=== PATIENT | female | born 1965 | race Caucasian/White ===

== ENCOUNTER 2021-11-26 14:31 | Outpatient (CLI) | payer OTHER, SELFPAY ==
--- NOTE | ~2021-11-26 | CT_ITS ---
EXAMINATION: CT brain wo/w con DATE: 11/26/2021 15:06 INDICATION: Dizziness and giddiness. TECHNIQUE: Computed tomography (CT) of the head was performed without and with 100 mL Omnipaque 350 i ntravenous contrast. The mA was adjusted according to patient size. Iterative reconstruction techniqu e was employed. The dose-length product was 1199.14 mGy-cm. COMPARISON: None FINDINGS: There is no intracranial hemorrhage, acute infarction, or abnormal intracranial mass lesion . The ventricles are normal in size. The paranasal sinuses are clear. The mastoid air cells are sivan l. The orbits are normal. IMPRESSION: 1. Normal brain. Reviewed, dictated and finalized at location A. IMPRESSION: 1. Normal brain.
== END 2021-11-26 14:32 ==
LOC: MICIMG 14:33
PROVIDERS: PCP Family Medicine Sports Medicine; Visit Provider Otolaryngology
DX: R42 Dizziness and giddiness (principal)
CPT/HCPCS: 70470; Q9967

== ENCOUNTER → 2023-08-11 10:54 | Outpatient (CLI) | payer OTHER, SELFPAY | PROVIDERS: PCP Nurse Practitioner Family; Visit Provider Nurse Practitioner Family | DX: M79.672 Pain in left foot (principal) | CPT/HCPCS: 73630 ==

== ENCOUNTER 2023-09-26 12:49 | Outpatient (CLI) | payer OTHER, SELFPAY ==
--- NOTE | ~2023-09-26 | MR_ITS ---
EXAMINATION: MR foot LT wo con DATE: 09/26/2023 13:29 INDICATION: Left foot pain TECHNIQUE: Magnetic resonance imaging (MRI) of the left fore/mid foot was performed without intraveno us contrast. Sequences included sagittal T1-weighted FSE, sagittal fluid sensitive FSE STIR, coronal PD-weighted FS FSE, coronal T1-weighted FSE, axial PD-weighted FS FSE, and axial PD-weighted FSE. COMPARISON: Left foot radiographs dated 08/11/2023 FINDINGS: Bone alignment is normal. No fracture. Moderate osteoarthritis at the second, third and fourth tarsal metatarsal joints. There is prominent subarticular cystlike change along the distal articular surfac e of the middle cuneiform. Mild subarticular cystlike changes at the base of the third metatarsal patrick ng its articulation with both the lateral cuneiform and the base of the fourth metatarsal. Mild osteo arthritis of the first metatarsophalangeal joint. The Lisfranc ligament complex and the collateral li gament complex at the metatarsophalangeal and interphalangeal joints are normal. There is focal mild thickening and mild increased signal along the central component of the plantar aponeurosis consisten t with plantar fibromatosis. The visualized portions of the flexor and extensor tendons are otherwise normal. No joint effusions, tenosynovitis, bursitis or other abnormal fluid collections. Visualized intrinsic musculature of the foot is unremarkable. IMPRESSION: 1. 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 2. Mild plantar fibromatosis. Reviewed, dictated and finalized at location A.
== END 2023-09-26 12:50 ==
LOC: GOSHIMG 12:50
PROVIDERS: PCP Nurse Practitioner Family; Visit Provider Podiatrist Foot & Ankle Surgery
DX: M19.072 Primary osteoarthritis, left ankle and foot (principal); M25.775 Osteophyte, left foot
CPT/HCPCS: 73718

== ENCOUNTER 2023-10-10 09:49 | Outpatient (CLI) | payer OTHER, SELFPAY ==
--- NOTE | 2023-10-10 | ECG_ITS ---
Test Date: 2023-10-10 10:19:35 Measurements Intervals [place] Rate: 75 P: 63 WY: 170 QRS: 2 QRSD: 141 T: 52 QT: 425 QTc: 476 Interpretive Statements SINUS RHYTHM LEFT BUNDLE BRANCH BLOCK ABNORMAL ECG No previous ECG available for comparison Electronically Signed On 10-10-2023 11:47:07 CDT by Nabor Murillo D.O.
== END 2023-10-10 09:50 | disposition home or self-care (01) ==
LOC: ANHCARD 09:51
PROVIDERS: PCP Nurse Practitioner Family; Visit Provider Podiatrist Foot & Ankle Surgery
DX: R03.0 Elevated blood-pressure reading, without diagnosis of hypertension (principal); I44.7 Left bundle-branch block, unspecified
CPT/HCPCS: 93005

== ENCOUNTER 2023-12-19 11:04 | Outpatient (CLI) | payer OTHER, SELFPAY ==
--- NOTE | ~2023-12-19 | US_ITS ---
LEFT LOWER EXTREMITY VENOUS ULTRASOUND Ordering provider: Portillo Echevarria DPM History: . DVT . Comparison: None. FINDINGS: --COMMON FEMORAL: Patent and free of thrombus. Normal compressibility, phasic flow and augmentation. --PROXIMAL SUPERFICIAL FEMORAL: Patent and free of thrombus. Normal compressibility, phasic flow and augmentation. --DISTAL SUPERFICIAL FEMORAL: Patent and free of thrombus. Normal compressibility, phasic flow and au gmentation. --POPLITEAL: Patent and free of thrombus. Normal compressibility, phasic flow and augmentation. --POSTERIOR TIBIAL: Patent and free of thrombus. Normal compressibility, phasic flow and augmentation . IMPRESSION: Negative left lower extremity venous US. No deep vein thrombosis. Reviewed, dictated and finalized at location A.
== END 2023-12-19 11:05 | disposition home or self-care (01) ==
PROVIDERS: PCP Nurse Practitioner Family; Visit Provider Podiatrist Foot & Ankle Surgery
DX: M19.072 Primary osteoarthritis, left ankle and foot (principal); M79.662 Pain in left lower leg
CPT/HCPCS: 93971